=== PATIENT | male | born 1970 | race Two or more races ===

== ENCOUNTER 2019-12-06 15:34 | Inpatient (IN) | payer SELFPAY ==
[~2019-12-06] VITALS: Ht 177.8 cm; Wt 90.7 kg
[2019-12-06 16:48] LABS: Hematocrit 26.9 % (41.0-53.0); Hemoglobin 8.8 g/dL (13.5-17.5); Mean Corpuscular Hemoglobin 31.6 pg (28.0-32.0); Mean Corpuscular Hgb Conc. 32.8 g/dL (32.0-36.0); Mean Corpuscular Volume 96.4 fL (80.0-100.0); Platelet Count (auto) 507 10^3/uL (140-450); Red Blood Cells 2.79 10^6/uL (4.5-5.90); White Blood Cell 12.1 10^3/uL (4.4-10.8)
[2019-12-06 16:49] LABS: Red Cell Distribution Width 21.6 % (11.8-14.3)
[2019-12-06 16:50] LABS: Basophils % (manual) 0 (0.0-2.0); Blast Cells 0; Myelocytes % 0; Promyelocytes % 0; Reactive Lymphocytes 0
[2019-12-06 16:52] LABS: Urine Bacteria NONE SEEN /hpf (None Seen); Urine Blood TRACE /uL (Negative); Urine Mucus FEW (None Seen); Urine Specific Gravity 1.019 (1.001-1.035); Urine WBC 3 /hpf (0 - 3)
[2019-12-06 16:55] LABS: Anion Gap 15 (5-15); Blood Urea Nitrogen 29 mg/dL (7-18); Calcium 9.9 mg/dL (8.5-10.1); Carbon Dioxide 20 mmol/L (21-32); Chloride 100 mmol/L (98-107); Glucose 73 mg/dL (74-106); Potassium 4.4 mmol/L (3.5-5.1); Sodium 135 mmol/L (136-145)
[2019-12-06 17:00] LABS: Alanine Aminotransferase 70 U/L (16-61); Alkaline Phosphatase 243 U/L (45-117); Aspartate Aminotransferase 334 U/L (15-37); BUN/Creatinine Ratio 17.9; Bilirubin, Total 4.3 mg/dL (0.2-1.0); GFR African American 58 mL/min; GFR Non-African American 48 mL/min; Total Protein 9.7 g/dL (6.4-8.2)
[2019-12-06 17:33] LABS: Band Neutrophils % (manual) 9; Lymphocytes % (manual) 5 (10.0-50.0); Monocytes % (manual) 7 (0-12)
[2019-12-06 17:34] LABS: Eosinophils % (manual) 1 (0-7); Metamyelocytes % 1
[2019-12-06] MEDS ORDERED: SODIUM CHLORIDE 0.9% 1,000 ML IV ONE (18:45)
[2019-12-06] MEDS ORDERED: IOHEXOL 300 MG/ML 100ML BOTTLE IJ ONE (18:49)
[2019-12-06] MEDS ORDERED: FUROSEMIDE 20 MG/2 ML VIAL IV ONE (21:15)
[2019-12-06] MEDS ORDERED: MORPHINE SULFATE 4 MG/ML SYR/VIAL IV PRN (21:30)
[2019-12-06] MEDS ORDERED: HYDROcodone-ACET 5/325MG TAB PO PRN (21:30)
[2019-12-06] MEDS ORDERED: ONDANSETRON HCL 4 MG/2 ML VIAL IV PRN (21:30)
[2019-12-06] MEDS ORDERED: DOCUSATE SOD 100 MG CAP PO PRN (21:30)
[2019-12-06 22:23] LABS: Lactic Acid w/Reflex 2.6 mmol/L (0.4-2.0)
[2019-12-06 22:29] LABS: Cholesterol 123 mg/dL (< 200); HDL Cholesterol 19 mg/dL (40-59); LDL Cholesterol 66 mg/dL (< 100); Triglycerides 77 mg/dL (< 150)
[2019-12-06 22:50] VITALS: BP 148/93
--- NOTE | 2019-12-06 22:50 | NUR ---
MS admit from ER DANN MENDIETA admitted to tele/MS. Patient oriented to Nereyda Nicole, primary RN, unit, room, bed, and unit policies regarding patient care. Patient is on room air. Respirations even and unlabored. Patient has no S/S of distress/SOB or pain. Patient encouraged to call if they need something. All questions and concerns addressed, patient verbalized understanding.
[2019-12-07] LABS: Urine Bacteria FEW /hpf (None Seen); Urine Blood Negative /uL (Negative); Urine Hyaline Cast FEW /lpf (0 - 2); Urine Mucus FEW (None Seen); Urine Specific Gravity 1.009 (1.001-1.035); Urine WBC <1 /hpf (0 - 3)
[2019-12-07 05:00] VITALS: BP 141/81
--- NOTE | 2019-12-07 07:00 | NUR ---
CLOSING NOTE Patient is on room air. Respirations even and unlabored. Patient has no S/S of distress/SOB or pain.
[2019-12-07 07:30] VITALS: BP 152/82
--- NOTE | 2019-12-07 07:30 | NUR ---
Opening Shift Note Received report on the patient. Awake lying in bed. Patient shows not signs of distress at this time. Discussed plan of care with the patient. Bed in lowest position, side rails up x2, and the call light is within reach. Will continue to monitor.
[2019-12-07] MEDS ORDERED: FUROSEMIDE 40 MG/4 ML VIAL IV SCH (08:00)
[2019-12-07 08:27] LABS: Hematocrit 24.1 % (41.0-53.0); Hemoglobin 8.3 g/dL (13.5-17.5); Mean Corpuscular Hemoglobin 33.1 pg (28.0-32.0); Mean Corpuscular Hgb Conc. 34.2 g/dL (32.0-36.0); Mean Corpuscular Volume 96.7 fL (80.0-100.0); Platelet Count (auto) 413 10^3/uL (140-450); White Blood Cell 10.6 10^3/uL (4.4-10.8)
[2019-12-07 08:34] LABS: Red Cell Distribution Width 21.7 % (11.8-14.3)
[2019-12-07 08:35] LABS: Basophils % (manual) 0 (0.0-2.0); Blast Cells 0; Metamyelocytes % 0; Myelocytes % 0; Promyelocytes % 0; Reactive Lymphocytes 0
[2019-12-07 08:36] LABS: BUN/Creatinine Ratio 21.4; Calcium 9.7 mg/dL (8.5-10.1)
[2019-12-07 08:56] LABS: Band Neutrophils % (manual) 6; Eosinophils % (manual) 1 (0-7); Lymphocytes % (manual) 8 (10.0-50.0); Monocytes % (manual) 8 (0-12)
[2019-12-07 09:23] VITALS: BP 148/82
[2019-12-07 10:33] LABS: INR 1.29 (0.9-1.15); Partial Thromboplastin Time 26.8 sec (23.64-32.05)
[2019-12-07] MEDS ORDERED: SODIUM CHLORIDE 0.9% 1,000 ML IV SCH (11:15)
[2019-12-07] MEDS ORDERED: hydrALAZINE HCL 20 MG/ML VL IV PRN (11:15)
--- NOTE | 2019-12-07 12:50 | NUR ---
AMA Patient left [facility] because he already had an appointment for a biopsy. Charge nurse, Dr. Ladd, and Shaikh Casey notified
[2019-12-07 13:00] VITALS: BP 162/87
[2019-12-07] MEDS ORDERED: FAMOTIDINE 20 MG TAB PO SCH (22:00)
== END 2019-12-07 13:00 | disposition left against medical advice (07) | DRG 435 ==
LOC: ER 15:34 → OVERFLOW 15:35 → CENTRAL 22:40
PROVIDERS: ADMIT Hospitalist; ATTEND Hospitalist
DX: C22.9 Malignant neoplasm of liver, not specified as primary or secondary (principal); N17.0 Acute kidney failure with tubular necrosis; R18.8 Other ascites; R65.10 Systemic inflammatory response syndrome (SIRS) of non-infectious origin without acute organ dysfunction; I10 Essential (primary) hypertension; D72.829 Elevated white blood cell count, unspecified; E86.0 Dehydration; R00.0 Tachycardia, unspecified; R74.8 Abnormal levels of other serum enzymes; Z83.3 Family history of diabetes mellitus
CPT/HCPCS: 36415; 71260; 74176; 76705; 80048; 80053; 80061; 81001; 82378; 83036; 83605; 83615; 84484; 85007; 85027; 85610; 85730; 87040; G0378

== ENCOUNTER 2019-12-13 10:05 | Emergency (ER) | payer SELFPAY ==
[~2019-12-13] VITALS: Ht 177.8 cm; Wt 98.0 kg
[2019-12-13 11:14] LABS: Hemoglobin 8.1 g/dL (13.5-17.5); Mean Corpuscular Hemoglobin 32.9 pg (28.0-32.0); Mean Corpuscular Hgb Conc. 33.6 g/dL (32.0-36.0); Mean Corpuscular Volume 97.9 fL (80.0-100.0); Platelet Count (auto) 470 10^3/uL (140-450); Red Blood Cells 2.45 10^6/uL (4.5-5.90); Red Cell Distribution Width 22.1 % (11.8-14.3); White Blood Cell 10.7 10^3/uL (4.4-10.8)
[2019-12-13 11:15] LABS: Band Neutrophils % (manual) 0; Basophils % (manual) 0 (0.0-2.0); Blast Cells 0; Metamyelocytes % 0; Myelocytes % 0; Promyelocytes % 0; Reactive Lymphocytes 0
[2019-12-13 11:18] LABS: Albumin 3.8 g/dL (3.4-5.0); Calcium 9.6 mg/dL (8.5-10.1); Potassium 4.5 mmol/L (3.5-5.1)
[2019-12-13 11:21] LABS: Bilirubin, Total 4.8 mg/dL (0.2-1.0); Total Protein 9.1 g/dL (6.4-8.2)
[2019-12-13 13:58] LABS: Eosinophils % (manual) 1 (0-7); Lymphocytes % (manual) 10 (10.0-50.0); Monocytes % (manual) 6 (0-12)
[2019-12-13 14:01] LABS: Urine Bacteria NONE SEEN /hpf (None Seen); Urine Blood TRACE /uL (Negative); Urine Hyaline Cast FEW /lpf (0 - 2); Urine Specific Gravity 1.021 (1.001-1.035); Urine WBC 4 /hpf (0 - 3)
[2019-12-13 15:01] VITALS: BP 151/81
== END 2019-12-13 15:41 | disposition home or self-care (01) ==
LOC: ER 10:05
DX: K74.60 Unspecified cirrhosis of liver (principal); R94.5 Abnormal results of liver function studies; I10 Essential (primary) hypertension
CPT/HCPCS: 36415; 74176; 76942; 80053; 81001; 85007; 85027; 87086; 89051; 93005; 99285; C1729; 10022

== ENCOUNTER → 2019-12-19 | Emergency (ER) | payer MEDICAID, OTHER ==
[~2019-12-19] VITALS: Ht 177.8 cm; Wt 99.8 kg
[~2019-12-19] MED LIST: PANTOPRAZOLE 40 MG TAB PO ONE; SODIUM CHLORIDE 0.9% 1,000 ML IV ONE
[2019-12-19 13:39] LABS: Red Blood Cells 2.54 10^6/uL (4.5-5.90)
[2019-12-19 13:41] LABS: Hematocrit 25.2 % (41.0-53.0); Hemoglobin 8.3 g/dL (13.5-17.5); Mean Corpuscular Hemoglobin 32.9 pg (28.0-32.0); Mean Corpuscular Hgb Conc. 33.1 g/dL (32.0-36.0); Mean Corpuscular Volume 99.3 fL (80.0-100.0); Platelet Count (auto) 570 10^3/uL (140-450); White Blood Cell 11.7 10^3/uL (4.4-10.8)
[2019-12-19 13:45] LABS: Red Cell Distribution Width 23.6 % (11.8-14.3)
[2019-12-19 13:46] LABS: Basophils % (manual) 0 (0.0-2.0); Blast Cells 0; Eosinophils % (manual) 0 (0-7); Metamyelocytes % 0; Myelocytes % 0; Promyelocytes % 0; Reactive Lymphocytes 0
[2019-12-19 13:50] LABS: INR 1.24 (0.9-1.15); Partial Thromboplastin Time 25.9 sec (23.64-32.05)
[2019-12-19 14:04] LABS: Albumin 3.6 g/dL (3.4-5.0); Anion Gap 10 (5-15); Blood Urea Nitrogen 29 mg/dL (7-18); Calcium 9.1 mg/dL (8.5-10.1); Carbon Dioxide 22 mmol/L (21-32); Chloride 103 mmol/L (98-107); Glucose 89 mg/dL (74-106); Potassium 4.9 mmol/L (3.5-5.1); Sodium 135 mmol/L (136-145)
[2019-12-19 14:06] LABS: Alanine Aminotransferase 79 U/L (16-61); Aspartate Aminotransferase 311 U/L (15-37); BUN/Creatinine Ratio 17.6; GFR African American 57 mL/min; GFR Non-African American 47 mL/min
[2019-12-19 14:11] LABS: Alkaline Phosphatase 276 U/L (45-117); Bilirubin, Total 4.8 mg/dL (0.2-1.0)
[2019-12-19 14:21] LABS: Band Neutrophils % (manual) 3; Lymphocytes % (manual) 14 (10.0-50.0); Monocytes % (manual) 8 (0-12)
[2019-12-19 16:09] VITALS: BP 144/77
== END | disposition home or self-care (01) ==
LOC: ER 12:22
DX: K74.60 Unspecified cirrhosis of liver (principal); R74.8 Abnormal levels of other serum enzymes; D72.829 Elevated white blood cell count, unspecified; D64.9 Anemia, unspecified; I10 Essential (primary) hypertension
CPT/HCPCS: 36415; 71045; 80053; 84484; 85007; 85027; 85610; 85730

== ENCOUNTER 2020-01-16 09:54 | Emergency (ER) | payer SELFPAY ==
[~2020-01-16] VITALS: Ht 170.2 cm; Wt 108.9 kg
[2020-01-16] MEDS ORDERED: SODIUM BICARBONATE 8.4% INJ 50ML SYRINGE IV ONE (09:55)
[2020-01-16] MEDS ORDERED: EPINEPHrine HCL 1 MG/10 ML SYRG IV ONE (09:55)
[2020-01-16 09:58] VITALS: BP 0/0
== END 2020-01-16 10:08 | disposition expired ==
LOC: ER 09:54 → EDBD 09:54 → ER 10:08
DX: I46.9 Cardiac arrest, cause unspecified (principal); J96.01 Acute respiratory failure with hypoxia
CPT/HCPCS: 31500; 92950; 99285; J0171